=== PATIENT | female | born 1945 | race Caucasian/White ===

== ENCOUNTER 2016-08-15 09:39 | Day surgery (SDC) | payer MEDICARE, BC ==
[~2016-08-15] VITALS: Ht 170.2 cm; Wt 126.0 kg
--- NOTE | 2016-08-16 08:22 | OR ---
ADMIT: 08/15/2016 RM/LOC: [facility] MR#: [id number] [address] [address] [place] [address] Operative/Delivery Room Report SEX: F AGE: 71 : 1945 SURGERY DATE: 08/15/2016 SURGEON: Meena Dowling MD [employer] PRODUCER: None. PREPROCEDURE DIAGNOSES: 1. Cervical disk degeneration. 2. Cervical neuritis. POSTPROCEDURE DIAGNOSES: 1. Cervical disk degeneration. 2. Cervical neuritis. PROCEDURE PERFORMED: Cervical epidural steroid injection, C7-T1 level. INDICATIONS FOR PROCEDURE: The patient is a pleasant female with history of chronic neck pain secondary to above-mentioned diagnosis, comes here for planned cervical epidural steroid injection. ANESTHESIA: Local without sedation. ESTIMATED BLOOD LOSS: Zero. COMPLICATIONS: None immediately evident. DESCRIPTION OF PROCEDURE: After the patient was seen in the preoperative area, vitals signs were taken. Prior to the procedure, the risks, benefits, and alternative therapies were discussed at length. Patient consent was obtained and updated. The patient was taken to the fluoroscopy suite and placed on the fluoroscopy table in the prone position. Pressure points were padded to comfort, monitors applied, and a timeout performed. Once adequate anesthesia of the skin over the cervical spine was achieved, the spine was prepped with ChloraPrep and draped in a sterile fashion. Under ADMIT: 08/15/2016 RM/LOC: [facility] MR#: [id number] [address] [address] [place], [place] [id number] Operative/Delivery Room Report SEX: F AGE: 71 : 1945 fluoroscopic guidance, a 20-gauge 3.5-inch Tuohy needle was passed through the anesthetized skin to the C7-T1 epidural space using a continuous loss of resistance to saline technique. The needle placement in the epidural space was confirmed by loss of resistance to saline and then injection of 2 mL of Isovue 300, which showed a clear epidural pattern with spread of contrast as high as C3. At this time, 4 mL of solution containing 80 mg of methylprednisolone and preservative-free normal saline were injected. The patient tolerated the procedure well and was discharged to postanesthesia recovery where she continued to recover without difficulty. PLAN: Discharge instructions were given, followup scheduled. 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 Meena Dowling MD/ marta JOB #: [id number] CC: Meena Dowling MD, Attending Physician Natali Uribe MD, Family Physician
== END 2016-08-15 11:14 | disposition home or self-care (01) ==
LOC: SSS 09:39
PROC: 3E0R33Z Introduction of Anti-inflammatory into Spinal Canal, Percutaneous Approach (ICD-10-PCS; principal; 2016-08-15)
PROC: B01BZZZ Fluoroscopy of Spinal Cord (ICD-10-PCS; principal; 2016-08-15)
DX: G89.29 Other chronic pain (principal); M50.13 Cervical disc disorder with radiculopathy, cervicothoracic region; F31.9 Bipolar disorder, unspecified; K21.9 Gastro-esophageal reflux disease without esophagitis; E55.9 Vitamin D deficiency, unspecified; Z88.1 Allergy status to other antibiotic agents; Z79.899 Other long term (current) drug therapy; Z98.890 Other specified postprocedural states